=== PATIENT | female | born 1935 | race Caucasian/White ===

== ENCOUNTER 2022-12-18 18:28 | Emergency (ER) | payer MEDICARE, BC ==
[2022-12-18 19:06] VITALS: RESP 18; TEMP 97.9
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
[2022-12-18 20:46] VITALS: BP 130/76; PULSE 76
== END 2022-12-18 20:40 | disposition home or self-care (01) ==
LOC: EC 18:28
DX: S39.012A Strain of muscle, fascia and tendon of lower back, initial encounter (principal); Z88.5 Allergy status to narcotic agent; Z90.49 Acquired absence of other specified parts of digestive tract; V89.2XXA Person injured in unspecified motor-vehicle accident, traffic, initial encounter; Y92.410 Unspecified street and highway as the place of occurrence of the external cause
CPT/HCPCS: 99283